=== PATIENT | male | born 1955 | race Caucasian/White ===

== ENCOUNTER → 2019-10-29 | Day surgery (SDC) | payer BC ==
[~2019-10-29] MED LIST: BACITRACIN 50000 UNIT VIAL ONE; CLINDAMYCIN 900MG/D5W 900 MG/50 ML IVPB IV ONE; CODEINE 30MG/APAP 300MG TAB ONE; FENTANYL CITR 100 MCG/2 ML ONE; KETOROLAC 30 MG/ML INJ ONE; LIDOCAINE 1% MPF 30 ML VIAL ONE; LIDOCAINE 1% MPF 5 ML VIAL ONE; MIDAZOLAM HCL 2 MG/2 ML INJ ONE; ONDANSETRON 4 MG/2 ML VIAL ONE; propofoL 200 MG/20 ML VIAL IV ONE
[2019-10-29] MEDS: NS 0.9% VIAL 10 ML ONE ×2 (07:00→07:40)
--- NOTE | 2019-10-29 09:00 | P.BOP ---
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
--- NOTE | 2019-10-29 09:41 | RAD REPORT ---
EXAM DESCRIPTION: RAD - Foot Right 2 View - 10/29/2019 9:28 am CLINICAL HISTORY: Foot surgery FINDINGS: Amputation involves the distal first metatarsal. No fracture or dislocation Medial soft tissue swelling. The bones are osteoporotic
[2019-10-29 10:29] VITALS: BP 122/66; TEMP 97.5; O2SAT 99
== END | disposition home or self-care (01) ==
LOC: OR 06:50
PROVIDERS: ATTEND Podiatrist
PROC: 0Y6M0Z9 Detachment at Right Foot, Partial 1st Ray, Open Approach (ICD-10-PCS; principal; 2019-10-29 07:30)
DX: E11.52 Type 2 diabetes mellitus with diabetic peripheral angiopathy with gangrene (principal); I96 Gangrene, not elsewhere classified; I10 Essential (primary) hypertension; I25.10 Atherosclerotic heart disease of native coronary artery without angina pectoris; I25.2 Old myocardial infarction; Z86.73 Personal history of transient ischemic attack (TIA), and cerebral infarction without residual deficits
CPT/HCPCS: 82947 ×2; 88305; 73620; 28810; J2704; J2250; J3010; J2405; 88304; 88311